=== PATIENT | female | born 1990 | race Caucasian/White ===

== ENCOUNTER 2020-04-23 10:26 | Emergency (ER) | payer SELFPAY ==
[2020-04-23] MEDS ORDERED: ONDANSETRON 4 MG/2 ML VIAL ONE (11:17)
[2020-04-23] MEDS ORDERED: NA CHLORIDE 0.9% 1,000 ML ONE (11:17)
[2020-04-23] MEDS ORDERED: KETOROLAC 30 MG/ML INJ ONE (11:17)
[2020-04-23 11:23] LABS: Absolute Lymphocytes (CBC) 2.1 K/uL (0.7-4.9); Hematocrit 42.1 % (36.0-45.0); Lymphocytes % 34.6 % (15.3-44.8); MPV 9.5 fL (7.6-11.3); RBC Red Blood Cell Count 4.75 M/uL (3.86-4.86)
[2020-04-23 11:27] LABS: Urine Blood NEGATIVE (NEG); Urine Glucose NEGATIVE (NEG); Urine Protein NEGATIVE (NEG); Urine Specific Gravity 1.025 (1.005-1.030)
[2020-04-23 11:42] LABS: ALT/SGPT 69 U/L (12-78); AST/SGOT 36 U/L (15-37); Albumin 3.7 g/dL (3.4-5.0); Alkaline Phosphatase 72 U/L (45-117); BUN Blood Urea Nitrogen 13 mg/dL (7-18); Bicarbonate 25 mmol/L (21-32); Bilirubin Direct < 0.1 mg/dL (0-0.2); Bilirubin Total 0.3 mg/dL (0.2-1.0); Glucose Level 81 mg/dL (74-106); Lipase 103 U/L (73-393); Protein, Total 7.4 g/dL (6.4-8.2); Sodium Level 141 mmol/L (136-145)
--- NOTE | 2020-04-23 13:19 | RAD REPORT ---
EXAM DESCRIPTION: CT - Abdomen Pelvis W Contrast - 04/23/2020 1:00 pm CLINICAL HISTORY: RLQ abdomen pain COMPARISON: No comparisons TECHNIQUE: Biphasic, helical CT imaging of the abdomen and pelvis was performed following 100 ml non -ionic IV contrast. Oral contrast was given. All CT scans are performed using dose optimization technique as appropriate and may include automated exposure control or mA/KV adjustment according to patient size. FINDINGS: No suspicious findings in the lung bases. The liver, spleen, and pancreas show no suspicious findings. Cholecystectomy clips are present. No bi liary tree dilatation. Renal parenchymal enhancement is somewhat heterogeneous for each kidney. The heterogeneity is symmetr ic. No specific finding for pyelonephritis on CT imaging. No hydronephrosis or obstructing calculus. No solid mass lesions seen. No bladder abnormalities. No adrenal abnormalities. Uterus and ovaries show no suspicious findings. No dilated bowel loops or bowel wall thickening. No findings for appendicitis. No free air, free flui d or inflammatory stranding. No mass or bulky lymphadenopathy. Patient has a small supraumbilical ve ntral hernia 2.5 cm in diameter with a 1.5 centimeter neck. Hernia contains only fat. No suspicious bony findings. IMPRESSION: No appendicitis or other acute finding identifiable. Small midline supraumbilical ventral hernia containing only fat.
--- NOTE | 2020-04-23 13:55 | ER ---
Nurse's Notes [facility] Name: Urvashi Palacios Age: 29 yrs Sex: Female : 1990 Arrival Date: 04/23/2020 Time: 10:27 Bed 18 Private MD: Diagnosis: Lower abdominal pain, unspecified Presentation: 04/23 10:37 Chief complaint: Patient states: RLQ pain that started yesterday, also reports N/V/D, em denies fever, cough congestion, pt is currently at [facility]. Coronavirus screen: Proceed with normal triage. Patient denies a cough. Patient denies shortness of breath or difficulty breathing. Patient denies measured and/or subjective temperature greater than 100.4F prior to today's visit. Patient denies travel on a cruise ship or to a country the [facility] currently lists as an affected area. Patient denies contact with known and/or suspected case of COVID-19. Ebola Screen: Patient negative for fever greater than or equal to 101.5 degrees Fahrenheit, and additional compatible Ebola Virus Disease symptoms Patient denies exposure to infectious person. Patient denies travel to an Ebola-affected area in the 21 days before illness onset. No symptoms or risks identified at this time. Initial Sepsis Screen: Does the patient meet any 2 criteria? No. Patient's initial sepsis screen is negative. Does the patient have a suspected source of infection? No. Patient's initial sepsis screen is negative. Risk Assessment: Do you want to hurt yourself or someone else? Patient reports no desire to harm self or others. Onset of symptoms was April 22, 2020. 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 - Social history:: Smoking status: Patient denies any tobacco usage or history of. Screenin:42 Abuse screen: Denies threats or abuse. Denies injuries from another. Nutritional ca1 screening: No deficits noted. Tuberculosis screening: No symptoms or risk factors identified. Fall Risk IV access (20 points). Assessment: 10:55 General: Appears in no apparent distress. comfortable, Behavior is calm, cooperative, ca1 appropriate for age. Pain: Complains of pain in right lower quadrant Pain radiates to left lower quadrant Pain currently is 6 out of 10 on a pain scale. Pain began 1 day ago. Is intermittent. Neuro: Level of Consciousness is awake, alert, obeys commands, Oriented to person, place, time, situation, Appropriate for age. Cardiovascular: Heart tones S1 S2 present Capillary refill < 3 seconds Patient's skin is warm and dry. Respiratory: Airway is patent Respiratory effort is even, unlabored, Respiratory pattern is regular, symmetrical, Breath sounds are clear bilaterally. GI: Abdomen is round non-distended, Bowel sounds present X 4 quads. Abd is soft X 4 quads Abdomen is tender to palpation in right upper quadrant and right lower quadrant Reports nausea, vomiting, since yesterday. : No signs and/or symptoms were reported regarding the genitourinary system. EENT: No signs and/or symptoms were reported regarding the EENT system. Derm: Skin is intact, is healthy with good turgor, Skin is pink, warm \\T\\ dry. Musculoskeletal: Circulation, motion, and sensation intact. Capillary refill is > 3 seconds. 11:26 Reassessment: PO contrast completed. ca1 12:09 Reassessment: Patient appears in no apparent distress at this time. Patient and/or ca1 family updated on plan of care and expected duration. Pain level reassessed. Patient is alert, oriented x 3, equal unlabored respirations, skin warm/dry/pink. 12:47 Reassessment: Patient appears in no apparent distress at this time. Patient and/or ca1 family updated on plan of care and expected duration. Pain level reassessed. Patient is alert, oriented x 3, equal unlabored respirations, skin warm/dry/pink. 13:43 Reassessment: Patient appears in no apparent distress at this time. Patient and/or ca1 family updated on plan of care and expected duration. Pain level reassessed. Patient is alert, oriented x 3, equal unlabored respirations, skin warm/dry/pink. 14:17 Reassessment: Patient appears in no apparent distress at this time. Patient is alert, ca1 oriented x 3, equal unlabored respirations, skin warm/dry/pink. Vital Signs: 10:37 BP 129 / 76; Pulse 86; Resp 18; Temp 97.8(TE); Pulse Ox 100% on R/A; Weight 104.33 kg; em Height 5 ft. 7 in. (170.18 cm); Pain 6/10; 11:26 BP 123 / 79; Pulse 72; Resp 16 S; Pulse Ox 100% on R/A; ca1 12:30 BP 113 / 77; Pulse 70; Resp 15 S; Pulse Ox 100% on R/A; ca1 13:45 BP 119 / 76; Pulse 73; Resp 15 S; Pulse Ox 100% on R/A; ca1 10:37 Body Mass Index 36.02 (104.33 kg, 170.18 cm) em ED Course: 10:27 Patient arrived in ED. as 10:39 Triage completed. em 10:40 Arm band placed on. em 10:41 Antoinette Lewis, RN is Primary Nurse. ca1 10:42 Patient has correct armband on for positive identification. Bed in low position. Call ca1 light in reach. Side rails up X 1. Placed in gown. Pulse ox on. NIBP on. Warm blanket given. 10:43 Dima Plasencia PA is PHCP. cp 10:43 Maximiliano Salmon MD is Attending Physician. cp 10:55 No provider procedures requiring assistance completed. Missed attempt(s): 20 gauge in ca1 right antecubital area. Bleeding controlled, band aid applied, catheter tip intact. 11:05 Initial lab(s) drawn, by wi, sent to lab. Inserted saline lock: 20 gauge in left ca1 antecubital area, using aseptic technique. Blood collected. 13:00 CT Abd/Pelvis - PO and IV Contrast In Process Unspecified. EDMS 14:18 IV discontinued, intact, bleeding controlled, No redness/swelling at site. Pressure ca1 dressing applied. Administered Medications: 11:07 Drug: NS 0.9% 1000 ml Route: IV; Rate: 1 bolus; Site: left antecubital; ca1 12:00 Follow up: Response: No adverse reaction; IV Status: Completed infusion ca1 11:09 Drug: Zofran (Ondansetron) 4 mg Route: IVP; Site: left antecubital; ca1 12:00 Follow up: Response: No adverse reaction; Nausea is increased ca1 11:11 Drug: Ketorolac 15 mg Route: IVP; Site: left antecubital; ca1 12:00 Follow up: Response: No adverse reaction; Pain is decreased ca1 Outcome: 13:54 Discharge ordered by MD. browne 14:18 Discharged to Rehab Facility ca1 14:18 Condition: stable 14:18 Discharge instructions given to patient, Instructed on discharge instructions, follow up and referral plans. medication usage, Demonstrated understanding of instructions, follow-up care, medications, Prescriptions given X 2. 14:19 Patient left the ED. ca1 Signatures: Dispatcher [employer] Miguel Todd, RN RN Kailey Rodríguez Corey, PA PA cp Acob, Cheryl, RN RN ca1
--- NOTE | 2020-04-23 13:55 | EDPHYS ---
Physician Documentation [facility] Name: Urvashi Palacios Age: 29 yrs Sex: Female : 1990 Arrival Date: 04/23/2020 Time: 10:27 Bed 18 Private MD: ED Physician Maximiliano Salmon HPI: 04/23 11:03 This 29 yrs old Female presents to ER via Ambulatory with complaints of cp Abdominal Pain. 11:03 The patient presents with abdominal pain right lower quadrant. Onset: The cp symptoms/episode began/occurred yesterday. The symptoms do not radiate. Associated signs and symptoms: Pertinent positives: nausea and vomiting, diarrhea, Pertinent negatives: dysuria, fever. 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 - Social history:: Smoking status: Patient denies any tobacco usage or history of. ROS: 11:10 Constitutional: Negative for body aches, chills, fever, poor PO intake. cp 11:10 Eyes: Negative for injury, pain, redness, and discharge. cp 11:10 ENT: Negative for ear pain, sore throat, difficulty swallowing, difficulty handling secretions. 11:10 Respiratory: Negative for cough, shortness of breath, wheezing. 11:10 Abdomen/GI: Positive for abdominal pain, nausea, vomiting, and diarrhea, Negative for cp constipation, anorexia. 11:10 Back: Negative for radiated pain. 11:10 : Negative for urinary symptoms, pelvic pain, flank pain, vaginal bleeding, vaginal discharge. 11:10 All other systems are negative. Exam: 11:15 Constitutional: The patient appears in no acute distress, alert, awake, non-toxic, well cp developed, well nourished. 11:15 Head/Face: Normocephalic, atraumatic. cp 11:15 Eyes: Periorbital structures: appear normal, Conjunctiva: normal, no exudate, no injection, Sclera: no appreciated abnormality, Lids and lashes: appear normal, bilaterally. 11:15 ENT: External ear(s): are unremarkable, Nose: is normal, Posterior pharynx: is normal, airway is patent. 11:15 Chest/axilla: Inspection: normal, Palpation: is normal, no crepitus, no tenderness. 11:15 Cardiovascular: Rate: normal, Rhythm: regular. 11:15 Respiratory: the patient does not display signs of respiratory distress, Respirations: normal, no use of accessory muscles, no retractions, labored breathing, is not present, Breath sounds: are clear throughout, no decreased breath sounds, no stridor, no wheezing. 11:15 Abdomen/GI: Inspection: abdomen appears normal, Bowel sounds: active, all quadrants, Palpation: soft, in all quadrants, moderate abdominal tenderness, in the right lower quadrant, rebound tenderness, is not appreciated, voluntary guarding, is elicited in the right lower quadrant. 11:15 Back: pain, is absent, ROM is normal. cp Vital Signs: 10:37 BP 129 / 76; Pulse 86; Resp 18; Temp 97.8(TE); Pulse Ox 100% on R/A; Weight 104.33 kg; em Height 5 ft. 7 in. (170.18 cm); Pain 6/10; 11:26 BP 123 / 79; Pulse 72; Resp 16 S; Pulse Ox 100% on R/A; ca1 12:30 BP 113 / 77; Pulse 70; Resp 15 S; Pulse Ox 100% on R/A; ca1 13:45 BP 119 / 76; Pulse 73; Resp 15 S; Pulse Ox 100% on R/A; ca1 10:37 Body Mass Index 36.02 (104.33 kg, 170.18 cm) em MDM: 10:53 Patient medically screened. cp 11:00 Differential diagnosis: appendicitis, Ectopic , non-specific abd pain, Ovarian cp Torsion, Pelvic Inflammatory Disease, Pyelonephritis, Tubal Ovarian Abcess, Ureterolithiasis, urinary tract infection. 13:53 Data reviewed: vital signs, nurses notes, lab test result(s), radiologic studies, CT cp scan. 13:53 Counseling: I had a detailed discussion with the patient and/or guardian regarding: the cp historical points, exam findings, and any diagnostic results supporting the discharge/admit diagnosis, lab results, radiology results, to return to the emergency department if symptoms worsen or persist or if there are any questions or concerns that arise at home. Response to treatment: the patient's symptoms have markedly improved after treatment. Special discussion: Based on the patient's Hx, exam, and Dx evaluation, there is no indication for emergent surgery or inpatient Tx. It is understood by the patient/guardian that if the Sx's persist or worsen they need to return immediately for re-evaluation. 13:53 ED course: VSS. Pain improved with meds. Will discharge to home for continued cp monitoring. 04/23 10:53 Order name: Urine Dipstick--Ancillary (enter results); Complete Time: 11:46 em1 04/23 10:53 Order name: Urine --Ancillary (enter results); Complete Time: 11:46 em1 04/23 11:00 Order name: Basic Metabolic Panel; Complete Time: 11:46 cp 04/23 11:47 Interpretation: Normal except: CL 110; GFR 80. cp 04/23 11:00 Order name: CBC with Diff; Complete Time: 11:46 cp 04/23 11:47 Interpretation: Reviewed. cp 04/23 11:00 Order name: Hepatic Function; Complete Time: 11:46 cp 04/23 11:46 Interpretation: Normal except: GLOB 3.7; A/G 1.0. cp 04/23 10:44 Order name: Urine Dipstick-Ancillary (obtain specimen); Complete Time: 10:52 cp 04/23 10:44 Order name: Urine Test (obtain specimen); Complete Time: 10:52 cp 04/23 11:00 Order name: Lipase; Complete Time: 11:46 cp 04/23 11:00 Order name: IV Saline Lock; Complete Time: 11:05 cp 04/23 11:00 Order name: CT Abd/Pelvis - PO and IV Contrast; Complete Time: 13:21 cp 04/23 13:22 Interpretation: Report reviewed. cp 04/23 11:00 Order name: Labs collected and sent; Complete Time: 11:05 cp Administered Medications: 11:07 Drug: NS 0.9% 1000 ml Route: IV; Rate: 1 bolus; Site: left antecubital; ca1 12:00 Follow up: Response: No adverse reaction; IV Status: Completed infusion ca1 11:09 Drug: Zofran (Ondansetron) 4 mg Route: IVP; Site: left antecubital; ca1 12:00 Follow up: Response: No adverse reaction; Nausea is increased ca1 11:11 Drug: Ketorolac 15 mg Route: IVP; Site: left antecubital; ca1 12:00 Follow up: Response: No adverse reaction; Pain is decreased ca1 Disposition: 15:55 Co-signature as Attending Physician, Maximiliano Salmon MD I agree with the assessment and kdr plan of care. Disposition: 04/23/20 13:54 Discharged to Home. Impression: Lower abdominal pain, unspecified. - Condition is Stable. - Discharge Instructions: Abdominal Pain, Adult. - Prescriptions for Ibuprofen 800 mg Oral Tablet - take 1 tablet by ORAL route every 8 hours As needed take with food; 30 tablet. Zofran 4 mg Oral Tablet - take 1 tablet by ORAL route every 12 hours As needed; 20 tablet. - Medication Reconciliation Form, Thank You Letter, Antibiotic Education, Prescription Opioid Use form. - Follow up: Private Physician; When: 1 - 2 days; Reason: Worsening of condition. - Problem is new. - Symptoms have improved. Signatures: Dispatcher [employer] EDSC Maximiliano Salmon MD MD [facility] Miguel Brooke, RN RN em Dima Plasencia PA PA cp Joshua, Antoinette, RN RN ca1 Corrections: (The following items were deleted from the chart) 14:19 13:54 04/23/2020 13:54 Discharged to Home. Impression: Lower abdominal pain, ca1 unspecified. Condition is Stable. Forms are Medication Reconciliation Form, Thank You Letter, Antibiotic Education, Prescription Opioid Use. Follow up: Private Physician; When: 1 - 2 days; Reason: Worsening of condition. Problem is new. Symptoms have improved. cp
[2020-04-23 14:35] VITALS: TEMP 97.8; O2SAT 100
[2020-04-23 14:39] VITALS: BP 119/76
== END 2020-04-23 14:19 | disposition home or self-care (01) ==
LOC: ER 10:26
DX: R10.31 Right lower quadrant pain (principal); R11.2 Nausea with vomiting, unspecified
CPT/HCPCS: 36415; 74177; 80048; 80076; 81003; 81025; 83690; 85025; 96361; 96374; 96375; 99284; J2405; J7030; Q9967

== ENCOUNTER 2020-09-23 13:38 | Emergency (ER) | payer SELFPAY ==
--- OUTSIDE RECORDS SUMMARY | 2020-09-23 13:39 | XMS REPORT | Clinical Summary ---
:1990 Author Organization [facility] Address [address] [place] [address] Care Team Providers Name Role Phone Asked, No Pcp Primary Care Provider Unavailable Allergies Active Allergy Reactions Severity Noted Date Comments Naproxen Itching 11/24/2017 Medications Medication Sig Dispensed Refills Start Date End Date Status Take 1 tablet by 0 Act handy vit,[id number] mouth daily. 29 mg iron- 1 mg tablet per tablet Active Problems Problem Noted Date 11/24/2017 Intrauterine growth restriction (IUGR) affecting care of mother, third 11/24/2017 trimester, single gestation (normal spontaneous vaginal delivery) 11/24/2017 Immunizations Name Administration Dates Next Due Tdap 11/26/2017 Surgical History Surgery Date Site/Laterality Comments CHOLECYSTECTOMY 10/24/2014 - 10/23/2015 gall bladd er removed Medical History Medical History Date Comments Intrauterine growth restriction (IUGR) affecting care of mot her, 11/24/2017 third trimester, single gestation (normal spontaneous vaginal delivery) 11/24/2017 Family History Medical History Relation Name Comments Breast cancer Maternal Grandmother Colon cancer Paternal Grandfather Relation Name Status Comments Maternal Grandmother Paternal Grandfather Social History Tobacco Use Types Packs/Day Years Used Date Former Smoker Cigars 0.5 14 Smokeless Tobacco: Former User Tobacco Cessation: Counseling Given: Yes Alcohol Use Drinks/Week oz/Week Comments No Sex Assigned at Date Recorded Not on file Obstetrics History Grav Para Term Pre Abrt (TAB) (SAB) (Ect) Mult Lvng Comments 1 1 1 0 1 Date Outcome GA Total Labor/2nd/3rd Weight Sex Delivery Anes PTL Joyce A 1 A5 Name Clin Labor 11/24 Term 39w 8h 23m 7h 45m/0h 6 lb M Vag-Spont Epidu N Kaur 8 9 PALACIOS, Ander 1d 36m/0h 02m 6.3 oz ral ng S MASHA n, A BOY Irina hess MD Complications: None [facility] Last Filed Vital Signs Not on file Plan of Treatment Not on file Results Not on fileafter 09/23/2019 Insurance Payer Benefit Plan / Subscriber ID Effective Dates Phone Addre ss Type Group XP [employer] [facility] [id number] 2017-Present HMO CHOICE [facility] Advance Directives For more information, please contact: [phone] Type Date Recorded Patient Human Resources Services Specialist Explanati on Advance Directives, Living Will 11/24/2017 4:52 AM and Medical Power of Architecture Drafter Code Status Date Activated Date Inactivated Comments Full Code 11/25/2017 8:48 AM 11/26/2017 2:57 PM Code Status decision reached by: Patient Full Code 11/24/2017 5:02 AM 11/24/2017 7:35 PM Code Status decision reached by: Patient
--- OUTSIDE RECORDS SUMMARY | 2020-09-23 13:40 | XMS REPORT | Continuity of Care Document ---
:1990 Author Organization [facility] t Address [address] [place] [address] Care Team Providers Name Role Phone Asked, Pcp Primary Care Physician Unavailable DR ROBY Attending Clinician Unavailable DR Cat SIMPSON Attending Clinician Unavailable DR LISA Attending Clinician Unavailable DR Nataly MCGARRY Attending Clinician Unavailable DR Margie GONZALEZ Attending Clinician Unavailable Desmond PINA Attending Clinician Unavailable DR DIVYA Attending Clinician Unavailable DR ROBY Admitting Clinician Unavailable DR Cat SIMPSON Admitting Clinician Unavailable DR LISA Admitting Clinician Unavailable DR Nataly MCGARRY Admitting Clinician Unavailable DR Margie GONZALEZ Admitting Clinician Unavailable Desmond PINA Admitting Clinician Unavailable DR DIVYA Admitting Clinician Unavailable Problems Condition Condition Condition Status Onset Resolution Last Treating Co mments Source Name Details Category Date Date Treatment Clinician Date Disease Active Nikki ston 11-24 Methodi 00:00: st 00 Intrauteri Intrauteri Disease Active Desmond donahue ne growth ne growth 11-24 Meth best restrictio restrictio 00:00: st n (IUGR) n (IUGR) 00 affecting affecting care of care of mother, mother, third third trimester, trimester, single single gestation gestation Disease Active [facility] (normal (normal 11-24 Methodi spontaneou spontaneou 00:00: st s vaginal s vaginal 00 delivery) delivery) Allergies, Adverse Reactions, Alerts Allergy Allergy Status Severity Reaction(s) Onset Inactive Treating Comm ents Source Name Type Date Date Clinician Naproxen Propensi Active Itching [place] on ty to 11-24 Methodi adverse 00:00: st reaction 00 s to drug Family History Family Member Diagnosis Comments Start Date Stop Date Source Maternal grandmother Breast cancer Desmond Maurice Paternal grandfather Colon cancer [place] Den[facility]ational Social History Social Habit Start Date Stop Date Quantity Comments Source History of tobacco Cigar Smoker [place] Denominational use Sex Assigned At [facility] Cigarettes smoked 2017-11-25 2017-11-25 [facility] current (pack per 00:00:00 00:00:00 day) - Reported Cigarette 2017-11-25 2017-11-25 [facility] Method ist pack-years 00:00:00 00:00:00 Tobacco use and 2017-11-25 2017-11-25 Former user [facility] exposure 00:00:00 00:00:00 Alcohol intake 2017-11-25 2017-11-25 Current [facility] 00:00:00 00:00:00 non-drinker of alcohol (finding) Smoking Status Start Date Stop Date Source Former smoker 2017-11-25 00:00:00 2017-11-25 00:00:00 [facility] Medications Ordered Filled Start Stop Current Ordering Indication Dosage Frequency Signature Comments Components Source Medication Medication Date Date Medication? Clinician (SIG) Name Name Yes 1{tbl} QD Take 1 [place] on vit,calc76- 2-03 tablet by [facility] iron-folic 10:56: mouth st 29 mg iron- 52 daily. 1 mg tablet per tablet Immunizations Ordered Immunization Filled Immunization Date Status Commen ts Source Name Name Tdap 2017-11-26 [facility] 00:00:00 Denominational Procedures This patient has no known procedures. Encounters Start End Encounter Admission Attending Care Care Encounter Source Date/Time Date/Time Type Type Clinicians Facility Department ID 2018-02-01 Inpatient [place] [id number] [place] 09:00:00 [facility] 2019-07-12 2019-07-12 Emergency E TATIANA [facility] [id number] [place] 19:21:00 20:50:00 [facility] [place] 2019-03-27 2019-03-27 Emergency E LISA [facility] [id number] [place] 17:19:00 19:12:00 [facility] [place] 2018-02-01 2018-03-27 Outpatient [place]ica MCGARRY [facility] PT [id number] [place] 09:02:00 23:59:00 [facility]IN [facility] [place] 2018-01-23 2018-01-23 Outpatient [place]ica MCGARRY [facility] RAD [id number] [place] 13:12:00 23:59:00 [facility] 2017-12-23 2017-12-23 Outpatient [place] MCGARRY, [facility] RAD [id number] [place] 09:46:00 [facility]:59:[facility] 2017-12-19 2017-12-19 Emergency E LISA, [facility] [id number] [place] 10:29:00 11:40:00 [facility] 2017-11-17 2017-11-17 Outpatient [place]ica CA, [facility] OB [id number] [place] 15:37:00 20:19:00 [facility] 2015-03-06 2015-03-06 Emergency E DIVYA, [facility] [id number] [place] 18:11:00 [facility] Results Test Description Test Time Test Comments Results Result [facility] e Comments XR FOOT LEFT 2019-06-24 LOCATION: [id number]: COMPLETE 3 VIEWS 9 28-year-old female who 20:43:23 presents with injury to her left foot.COMMENT: Frontal, oblique, and lateral radiographs of the patient's left foot wereobtained. The skeleton is intact, and normally mineralized. The joint spaces arewell-maintained. The soft tissues are unremarkable.IMPRESSION:Unr emarkable radiographic examination of the left foot. XR ANKLE LEFT 2019-06-24 LOCATION: [id number]: COMPLETE 3 VIEWS 9 28-year-old female who 20:37:00 presents with an injury to her left ankle.COMMENT: Frontal, oblique, and lateral radiographs of the patient's left ankle wereobtained.The skeleton is intact, and normally mineralized. The mortise joint andsubtalar joints are preserved. The surrounding soft tissues are unremarkable.IMPRESSION:Unr emarkable radiographic examination of the left ankle. XR SHOULDER LOCATION: [id number]: RIGHT 3 VIEWS 4 28-year-old female who 18:36:50 presents with pain in her right shoulder.COMMENT: Frontal radiographs of the patient's right shoulder were obtained with thehumerus internally and externally rotated. A scapular Y-view was includedThe skeleton is intact, and normally mineralized. The glenohumeral andacromioclavicular joints are with normal limits. The soft tissues areunremarkable.IMPRESSION: Unremarkable radiographic examination of the right shoulder. XR CHEST 1 VIEW LOCATION: [id number]: PORTABLE 4 28-year-old female who 18:36:12 presents with right shoulder painCOMMENT: A frontal chest radiograph was obtained at the bedside at 6:07 p.m. The lungs are clear and well-aerated. The cardiac silhouette, sapphire, andmediastinum are within normal limits. The skeleton is intact, and thesurrounding soft tissues are unremarkable. IMPRESSION:Unremarkable portable examination of the chest. MRI SPINE LUMBAR MRI Lumbar Spine without W/O CONTRAST*WW* 2 contrastLocation code: 14:47:15 [id number]: M54.5: LOW BACK PAINCOMPARISON: None.Technique: Multiplanar multisequence MR imaging of the lumbar spine wasperformed without contrast. Findings: Lumbar vertebral height and marrow signal are preserved throughout. 5lumbar segments are assumed. The conus terminates normally at L1/L2. Theparaspinal soft tissues are unremarkable. Multilevel spondylitic changes arenoted as follows:L1-L2: NormalL2-L3: NormalL3-L4: NormalL4-L5: Mild annular bulging and minimal facet arthropathy without significantcentral canal or foraminal stenosis.L5-S1: Mild annular bulging and minimal facet arthropathy without significantcentral canal or foraminal stenosis.IMPRESSION: Minimal lower lumbar spondylosis and facet arthropathy without significantcentral canal or foraminal stenosis. Otherwise, no acute abnormality. XR SPINE LUMBAR LUMBAR SPINE 5 COMPLETE*WW* 2 VIEWS:Location: D3Rplgggd: 10:28:56 pain in spine.Comparison: None.FINDINGS:AP, bilateral oblique, lateral and spot view of the lumbosacral junction wasperformed.There are surgical clips from prior cholecystectomy.Alignment is satisfactory. There is no fracture or subluxation. Vertebral bodyheights are maintained. Mild spondylosis is present throughout the lumbarspine. Facet arthropathy is noted in the lower lumbar spine. Paravertebral softtissues are normal. IMPRESSION: 1. Mild spondylosis. No acute osseous abnormality. U/S BIO-PHYSICAL 2017-10-25 Location of dictation: PROFILE*WW* 5 [id number] PROFILE: 18:51:14 CLINICAL INDICATION: [id number]: growth restrictionTECHNIQUE: Dynamic scanning of the gravid uterus was performed.FINDINGS: There is a single living in cephalic presentation. Cardiacactivity was documented at 137 beats per minute and regular. The cervix isclosed measuring 3.5 cm. The placenta is fundal with no evidence for previa.Grade 2 changes are noted. Amniotic fluid index measures 12 cm with the singledeepest pocket measuring 3.8 cm.Biophysical profile was performed: breathing movements: 2.Gross body movement: 2. tone: 2.Qualitative amniotic fluid volume: 2.Total score is 8.IMPRESSION:1. Single viable in cephalic presentation.2. Biophysical profile score excluding nonstress test of 8 of 8. U/S 2017-06-25 OBSTETRIC ULTRASOUND >14 WEEKS 6 Location code: [id number] 16:03:35 HISTORY: Vomiting, diarrheaGA by first US: 20 weeks and 2 daysEDD by 1st ultrasound: 12/04/17GA by today's US: 20 weeks and 0 daysFindings:There is a single intrauterine in cephalic presentation. Estimatedfetal heart rate is 154 beats per minute. Amniotic fluid index is 12.5 cm. Theplacenta is posterior with grade 1 changes. There is no evidence of previa orabruption. The cervix is closed and measures 2.6 cm. The maternal adnexa areunremarkable. Approximate sonographic age is 20 weeks and 0 days based upon the following:BPD 4.7 cm 20 weeks 2 daysHC 17.4 cm 20 weeks 0 daysAC 15.3 cm 20 weeks 3 daysFL 3.2 cm 20 weeks 1 day ratios are within normal limits. weight estimateWeight: 343 gramsAnatomic survey reveals no abnormality of the intracranial contents,four-chamber heart, bilateral kidneys, urinary bladder, 3 vessel cord, cordinsertion, spine, and extremities. The stomach is nonvisualized.IMPRESSION: 1. Single intrauterine in cephalic presentation with an approximatesonographic age of 20 weeks and 0 days. 2. No abnormality identified. The stomach is nonvisualized.Follow-up exam and 4-6 weeks is recommended. BETA HCG QUANTITATIVE SERUM 2017-07-19 15:01:00 Test Item Value Reference Range Interpretation Comme [facility] QUANT (test code = H73) 7489.00 mIU/mL BHCGQ (test code = BHCQ) QUANTITATIVE BHCG RESULT INTERPRETAT ION APPROXIMATE APPROXIMATE GESTATIONAL AGE HCG RANGE (WEEKS) (mIU/mL) 0.2 - 1 0 - 50 1 - 2 50 - 500 2 - 3 100 - 5,000 3 - 4 500 - 10,000 4 - 5 1,000 - 50,000 5 - 6 10,000 - 100,000 6 - 8 15,000 - 200,000 8 - 12 10,000 - 100,000 XR CHEST 2 [id number] 14:48:00PA and lateral chest, 2 views.Location code: [id number] HISTORY: Cough, shortness of breathCOMPARISON: 10/24/2014COMMENTS: The lungs are clear and well inflated. The costophrenic angles aresharp. The ca rdiomediastinal silhouette is unremarkable. The bones are intact.IMPRESSION: No acute abnormalityAMYLASE AND [id number] 14:38:00 Test Item Value Reference Range Interpretation Comments AMYLASE (test code = 10A) 36 U/L 28-100 LIPASE (test code = 60A) 76 IU/L 73-393 COMPREHENSIVE METABOLIC [id number] 14:38:00 Test Item Value Reference Range Interpretation Comments GLUCOSE (test code = 06D) 79 mg/dL 75-100 SODIUM (test code = 01A) 137 mmol/L 136-145 POTASSIUM (test code = 01B) 3.5 mmol/L 3.6-5.1 L CHLORIDE (test code = 04A) 106 mmol/L 98-107 CO2 (test code = 02A) 21 mmol/L 22-32 L ANION GAP (test code = ANG) 13.5 mmol/L BUN (test code = 05D) 9 mg/dL 7-18 CREATININE (test code = 03E) 0.7 mg/dL 0.4-1.1 BUN/CREA (test code = BCR) 14 12-20 CALCIUM (test code = 09D) 8.8 mg/dL 8.3-9.5 BILI TOTAL (test code = 11A) 0.7 mg/dL 0.2-1.0 PROTEIN (test code = 07D) 7.7 g/dL 6.4-8.2 ALBUMIN (test code = 08D) 3.3 g/dL 3.5-4.8 L GLOBULIN (test code = GLB) 4.4 g/dL 1.5-3.8 H ALB/GLOB (test code = AGRR) 0.8 1.0-2.6 L ALK PHOS (test code = 35A) 72 IU/L 42-121 AST (test code = 30A) 15 IU/L <=42 ALT (test code = 31A) 22 IU/L <=78 URINALYSIS WITH [id number] 14:24:00 Test Item Value Reference Range Interpretation Comments COLOR (test code = COLU) DK YELLOW YELLOW A CLARITY (test code = CLA) CLOUDY CLEAR A GLUCOSE UR (test code = UA GLUCOSE) NEGATIVE NEGATIVE BILI UR (test code = BILE) 1+ NEGATIVE A KETONES UR (test code = HUNTER) 3+ NEGATIVE A SP GRAVITY (test code = SPGR) 1.031 1.005-1.030 H PH UR (test code = PH) 6.5 4.5-8.0 PROTEIN UR (test code = PU) 2+ NEGATIVE A UROBIL UR (test code = UROQ) 0.2 EU/dL 0.2-1.0 NITRITE UR (test code = NITRITE) NEGATIVE NEGATIVE BLOOD UR (test code = UA BLOOD) NEGATIVE NEGATIVE LEUK ES UR (test code = LEUK) TRACE NEGATIVE A WBC UR (test code = UWBC) 2 /HPF 0-5 RBC UR (test code = URBC) 0 /HPF 0-2 EPITH UR (test code = UEPC) MANY /LPF FEW A BACTERIA UR (test code = UBACT) FEW /HPF NONE A CBC (INCLUDES AUTOMATED DIFFERENTIAL)2017-07-19 14:19:00 Test Item Value Reference Range Interpretation Comments WBC (test code = WBC) 11.8 10\S\3/uL 4.5-11.0 H RBC (test code = RBC) 4.56 10\S\6/uL 4.30-5.70 HGB (test code = HBG) 13.6 g/dL 12.0-15.5 HCT (test code = HCT) 39.3 % 35.0-44.0 MCV (test code = MCV) 86.2 fL 81.0-99.0 MCH (test code = MCH) 29.8 pg 27.0-31.0 MCHC (test code = MCHC) 34.6 g/dL 32.0-36.0 RDW (test code = RDW) 13.2 % 11.5-14.5 PLT (test code = PLT) 212 10\S\3/uL 130-400 MPV (test code = MPV) 11.5 fL 9.4-12.4 NEUTROP # (test code = NE#) 8.9 10\S\3/uL 1.6-8.0 H LYMPH # (test code = LY#) 2.1 10\S\3/uL 1.1-3.5 MONOCYTE # (test code = MO#) 0.7 10\S\3/uL 0.0-1.1 EOSINOPH # (test code = EO#) 0.0 10\S\3/uL 0.0-0.7 BASOPHIL # (test code = BA#) 0.1 10\S\3/uL 0.0-0.3 IG # (test code = IG#) 0.09 10\S\3/uL 0.00-0.06 H NRBC # (test code = NRBC#) 0.00 10\S\3/uL 0.00-0.01 NEUTROPH % (test code = NE%) 75.0 % 35.0-73.0 H LYMPH % (test code = LY%) 17.8 % 20.0-55.0 L MONO % (test code = MO%) 5.7 % 2.5-10.0 EOSINOPH % (test code = EO%) 0.3 % 0.0-5.0 BASOPHIL % (test code = BA%) 0.4 % 0.0-2.0 IG % (test code = IG%) 0.8 % 0.0-0.8 NRBC% (test code = NRBC%) 0.0 % 0.0-0.2 MANDIFF (test code = MDIFF) NO NO RBC MORPH (test code = RBCMOR) NORMAL Arterial Blood [id number] 14:11:00 Test Item Value Reference Range Interpretation Comments pH (test code = PHRT) 7.396 7.350-7.450 pCO2 (test code = 34.8 mmHg 35.0-45.0 L PCO2RT) pO2 (test code = 234.0 mmHg 80.0-110.0 H PO2RT) HCO3? (test code = 20.9 mmol/L 22.0-26.0 L HCO3) JEAN-CLAUDE (test code = JEAN-CLAUDE) -2.8 mmol/L -3.0-3.0 tHb (test code = 13.5 g/dL 12.0-15.5 THBRT) sO2 (test code = 99.6 % 92.0-100.0 SO2RT) FO2Hb (test code = 96.2 % 94.0-100.0 [id number]) FCOHb (test code = 2.6 % 0.0-3.0 FCOHBRT) FMetHb (test code = 0.8 % 0.2-0.6 H FMETHBRT) ABGTEMP (test code = * Temp Corrected Values* ABGTEMP) ABGTEMP (test code = 37.0 ?C ABGTEMP.) pH (T) (test code = 7.396 7.350-7.450 PHTEMP) pCO2 (T) (test code = 34.8 mmHg 35.0-45.0 L [id number]) pO2 (T) (test code = 234.0 mmHg 80.0-110.0 H [id number]) Device (test code = NON RE-GONZALO MASK DEVICE) FI02 (test code = 100.0 % FI02) Liter_flow (test code = LF) VENPAR (test code = * Ventilator Parameters VENPAR) * SIMV (test code = SIMV) A/C (test code = A/C) CPAP (test code = CPAP) PEEP (test code = PEEP) PS (test code = PS) PIP (test code = PIP) I_Time (test code = ITIME) Vt (test code = VT) BIPAP INSP (test code = BIPAPINP) BIPAP EXP (test code = BIPAPEXP) Yared test (test code Positive = ATEST) SAMPLE SITE (test Left Radial Artery code = SSITE) COMMENT (test code = CO) U/S < 14 WEEKS*WW*2017-05-26 14:06:09PELVIC AND TRANSVAGINAL ULTRASOUNDLocation code: [id number] HISTORY: , carbon monoxide exposu reTECHNIQUE: Multiple high resolution images were obtained through the pelvis using amultifrequency curved transducer followed by a transvaginal probe.FINDINGS: The uterus measures 12.2 x 8.8 x 8.0 cm.There is a single intrauterinepregnancy. [place]-rump length corresponds to approximate sonographic age of 12weeks and 4 days . Approximate heart rate is 150 beats per minute. Thereis no visualizedsubchorionic collection. The cervical os is closed.The bilateral ovaries are nonvisualized. There isno adnexal mass or fluidcollection.IMPRESSION:1. Single intrauterine gestation with approximate sonographic age of 12 weeksand 4 days. This gives an estimated date of delivery of 12/04/2017.2. No abnormality identified.Arterial Blood [id number] 12:24:00 Test Item Value Reference Range Interpretation Comments pH (test code = PHRT) 7.411 7.350-7.450 pCO2 (test code = 33.6 mmHg 35.0-45.0 L PCO2RT) pO2 (test code = 98.9 mmHg 80.0-110.0 PO2RT) HCO3? (test code = 20.9 mmol/L 22.0-26.0 L HCO3) JEAN-CLAUDE (test code = JEAN-CLAUDE) -2.5 mmol/L -3.0-3.0 tHb (test code = 13.6 g/dL 12.0-15.5 THBRT) sO2 (test code = 98.0 % 92.0-100.0 SO2RT) FO2Hb (test code = 91.5 % 94.0-100.0 L [id number]) FCOHb (test code = 5.5 % 0.0-3.0 H FCOHBRT) FMetHb (test code = 1.1 % 0.2-0.6 H FMETHBRT) ABGTEMP (test code = * Temp Corrected Values* ABGTEMP) ABGTEMP (test code = 37.0 ?C ABGTEMP.) pH (T) (test code = 7.411 7.350-7.450 PHTEMP) pCO2 (T) (test code = 33.6 mmHg 35.0-45.0 L [id number]) pO2 (T) (test code = 98.9 mmHg 80.0-110.0 PG2QFPT) Device (test code = ROOM AIR DEVICE) FI02 (test code = 21.0 % FI02) Liter_flow (test code = LF) VENPAR (test code = * Ventilator Parameters VENPAR) * SIMV (test code = SIMV) A/C (test code = A/C) CPAP (test code = CPAP) PEEP (test code = PEEP) PS (test code = PS) PIP (test code = PIP) I_Time (test code = ITIME) Vt (test code = VT) BIPAP INSP (test code = BIPAPINP) BIPAP EXP (test code = BIPAPEXP) Yared test (test code Positive = ATEST) SAMPLE SITE (test Left Radial Artery code = SSITE) COMMENT (test code = CO) BASIC METABOLIC PANEL 2017-05-26 12:24:00 Test Item Value Reference Range Interpretation Comments GLUCOSE (test code = 06D) 93 mg/dL 75-100 SODIUM (test code = 01A) 141 mmol/L 136-145 POTASSIUM (test code = 01B) 3.5 mmol/L 3.6-5.1 L CHLORIDE (test code = 04A) 110 mmol/L 98-107 H CO2 (test code = 02A) 21 mmol/L 22-32 L ANION GAP (test code = ANG) 13.5 mmol/L BUN (test code = 05D) 5 mg/dL 7-18 L CREATININE (test code = 03E) 0.6 mg/dL 0.4-1.1 BUN/CREA (test code = BCR) 8 12-20 L CALCIUM (test code = 09D) 8.6 mg/dL 8.3-9.5 CBC (INCLUDES AUTOMATED DIFFERENTIAL)*[id number] 12:14:00 Test Item Value Reference Range Interpretation Comments WBC (test code = WBC) 9.5 10\S\3/uL 4.5-11.0 RBC (test code = RBC) 4.51 10\S\6/uL 4.30-5.70 HGB (test code = HBG) 13.3 g/dL 12.0-15.5 HCT (test code = HCT) 38.5 % 35.0-44.0 MCV (test code = MCV) 85.4 fL 81.0-99.0 MCH (test code = MCH) 29.5 pg 27.0-31.0 MCHC (test code = MCHC) 34.5 g/dL 32.0-36.0 RDW (test code = RDW) 13.2 % 11.5-14.5 PLT (test code = PLT) 178 10\S\3/uL 130-400 MPV (test code = MPV) 11.7 fL 9.4-12.4 NEUTROP # (test code = NE#) 6.1 10\S\3/uL 1.6-8.0 LYMPH # (test code = LY#) 2.5 10\S\3/uL 1.1-3.5 MONOCYTE # (test code = MO#) 0.7 10\S\3/uL 0.0-1.1 EOSINOPH # (test code = EO#) 0.1 10\S\3/uL 0.0-0.7 BASOPHIL # (test code = BA#) 0.0 10\S\3/uL 0.0-0.3 IG # (test code = IG#) 0.02 10\S\3/uL 0.00-0.06 NRBC # (test code = NRBC#) 0.00 10\S\3/uL 0.00-0.01 NEUTROPH % (test code = NE%) 64.4 % 35.0-73.0 LYMPH % (test code = LY%) 26.5 % 20.0-55.0 MONO % (test code = MO%) 7.5 % 2.5-10.0 EOSINOPH % (test code = EO%) 1.1 % 0.0-5.0 BASOPHIL % (test code = BA%) 0.3 % 0.0-2.0 IG % (test code = IG%) 0.2 % 0.0-0.8 NRBC% (test code = NRBC%) 0.0 % 0.0-0.2 MANDIFF (test code = WMDIFF) NO NO RBC MORPH (test code = NORMAL WRBCMOR)
[2020-09-23 14:11] LABS: Urine Blood NEGATIVE (NEG); Urine Glucose NEGATIVE (NEG); Urine Protein NEGATIVE (NEG)
--- NOTE | 2020-09-23 14:19 | EDPHYS ---
Physician Documentation [facility] Name: Urvashi Palacios Age: 29 yrs Sex: Female : 1990 Arrival Date: 09/23/2020 Time: 13:41 Bed 20 Private MD: CAT Physician Dima Morocho HPI: 09/23 14:31 This 29 yrs old Female presents to ER via Ambulatory with complaints of Arm kb Pain. 14:31 The patient presents with an abscess of the left antecubital area. Description: kb erythematous, swollen. Onset: The symptoms/episode began/occurred last week. Possible cause(s): "missed when injecting meth". Associated signs and symptoms: Pertinent positives: erythema, swelling, Pertinent negatives: discharge, drainage, foreign body sensation, fever, headache, nausea, shortness of breath, vomiting. Modifying factors: the symptoms are alleviated by nothing, the symptoms are aggravated by nothing. Severity of symptoms: At their worst the symptoms were mild, moderate, in the emergency department the symptoms are unchanged. The patient has not experienced similar symptoms in the past. The patient has not recently seen a physician. 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 - Social history:: Smoking status: Patient reports the use of cigarette tobacco products, smokes one-half pack cigarettes per day. ROS: 14:25 Constitutional: Negative for fever, chills, and weight loss, Cardiovascular: Negative kb for chest pain, palpitations, and edema, Respiratory: Negative for shortness of breath, cough, wheezing, and pleuritic chest pain, Abdomen/GI: Negative for abdominal pain, nausea, vomiting, diarrhea, and constipation, Back: Negative for injury and pain, MS/Extremity: Negative for injury and deformity, Neuro: Negative for headache, weakness, numbness, tingling, and seizure. 14:25 Skin: Positive for abscess, of the left antecubital area. Exam: 14:25 Constitutional: This is a well developed, well nourished patient who is awake, alert, kb and in no acute distress. Head/Face: Normocephalic, atraumatic. Chest/axilla: Normal chest wall appearance and motion. Nontender with no deformity. No lesions are appreciated. Cardiovascular: Regular rate and rhythm with a normal S1 and S2. No gallops, murmurs, or rubs. Normal PMI, no JVD. No pulse deficits. Respiratory: Lungs have equal breath sounds bilaterally, clear to auscultation and percussion. No rales, rhonchi or wheezes noted. No increased work of breathing, no retractions or nasal flaring. Abdomen/GI: Soft, non-tender, with normal bowel sounds. No distension or tympany. No guarding or rebound. No evidence of tenderness throughout. MS/ Extremity: Pulses equal, no cyanosis. Neurovascular intact. Full, normal range of motion. Neuro: Awake and alert, GCS 15, oriented to person, place, time, and situation. Cranial nerves II-XII grossly intact. Motor strength 5/5 in all extremities. Sensory grossly intact. Cerebellar exam normal. Normal gait. 14:25 Skin: abscess, that is small, of the left antecubital area, with induration. Vital Signs: 13:44 BP 118 / 78; Pulse 88; Resp 16; Temp 98.1; Pulse Ox 100% ; Weight 98.88 kg; Height 5 ss ft. 7 in. (170.18 cm); 14:26 BP 112 / 83; Pulse 78; Resp 16; Pulse Ox 100% ; ll1 13:44 Body Mass Index 34.14 (98.88 kg, 170.18 cm) ss MDM: 13:48 Patient medically screened. kb 14:14 Data reviewed: vital signs, nurses notes. Data interpreted: Pulse oximetry: on room air kb is 100 %. Interpretation: normal. Counseling: I had a detailed discussion with the patient and/or guardian regarding: the historical points, exam findings, and any diagnostic results supporting the discharge/admit diagnosis, the need for outpatient follow up, a family practitioner, to return to the emergency department if symptoms worsen or persist or if there are any questions or concerns that arise at home. 09/23 14:00 Order name: Urine Dipstick--Ancillary (enter results); Complete Time: 14:13 bd 09/23 14:00 Order name: Urine --Ancillary (enter results); Complete Time: 14:13 bd Administered Medications: No medications were administered Disposition: 15:48 Co-signature as Attending Physician, Dima Morocho MD I agree with the assessment and kerri plan of care. Disposition: 09/23/20 14:19 Discharged to Home. Impression: Cutaneous abscess of left upper limb - AC . - Condition is Stable. - Discharge Instructions: Skin Abscess, [id number]. - Prescriptions for Bactrim DS 800- 160 mg Oral Tablet - take 1 tablet by ORAL route every 12 hours for 7 days; 14 tablet. - Medication Reconciliation Form, Thank You Letter, Antibiotic Education, Prescription Opioid Use form. - Follow up: Emergency Department; When: As needed; Reason: Worsening of condition. Follow up: Private Physician; When: 2 - 3 days; Reason: Recheck today's complaints, Continuance of care, Re-evaluation by your physician. Signatures: Dispatcher [employer] EDMS Bessie Dominguez, PINKY MALLOY-Dima Valles MD MD cha Smirch, Shelby RN RN Tracie Malhotra RN RN ll1 Corrections: (The following items were deleted from the chart) 14:26 14:19 09/23/2020 14:19 Discharged to Home. Impression: Cutaneous abscess of left upper ll1 limb - AC . Condition is Stable. Forms are Medication Reconciliation Form, Thank You Letter, Antibiotic Education, Prescription Opioid Use. Follow up: Emergency Department; When: As needed; Reason: Worsening of condition. Follow up: Private Physician; When: 2 - 3 days; Reason: Recheck today's complaints, Continuance of care, Re-evaluation by your physician. kb
--- NOTE | 2020-09-23 14:19 | ER ---
Nurse's Notes [facility] Name: Urvashi Palacios Age: 29 yrs Sex: Female : 1990 Arrival Date: 09/23/2020 Time: 13:41 Bed 20 Private MD: Diagnosis: Cutaneous abscess of left upper limb- Presentation: 09/23 13:43 Chief complaint: Patient states: left arm "sharp pains after I missed a shot of ss methamphetamine's" about 2-3 weeks ago. Coronavirus screen: Client denies travel out of the [place] in the last 14 days. At this time, the client does not indicate any symptoms associated with coronavirus-19. Ebola Screen: No symptoms or risks identified at this time. Risk Assessment: Do you want to hurt yourself or someone else? Patient reports no desire to harm self or others. Onset of symptoms was August 2020. 13:43 Method Of Arrival: Ambulatory ss 13:43 Acuity: SETH 3 ss 13:44 Initial Sepsis Screen: Does the patient meet any 2 criteria? No. Patient's initial ss sepsis screen is negative. Does the patient have a suspected source of infection? No. Patient's initial sepsis screen is negative. Triage Assessment: 13:54 Pain:. 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 - Social history:: Smoking status: Patient reports the use of cigarette tobacco products, smokes one-half pack cigarettes per day. Screenin:53 Abuse screen: Denies threats or abuse. Nutritional screening: No deficits noted. ll1 Tuberculosis screening: No symptoms or risk factors identified. 14:05 Fall Risk None identified. ca1 Assessment: 14:05 General: Appears in no apparent distress. comfortable, Behavior is calm, cooperative, ca1 appropriate for age. Pain: Complains of pain in left antecubital area. Neuro: Level of Consciousness is awake, alert, obeys commands, Oriented to person, place, time, situation. Derm: Skin is intact, is healthy with good turgor, Skin is pink, warm \\T\\ dry. Rash noted that is red, raised, on left antecubital area. Musculoskeletal: Circulation, motion, and sensation intact. Capillary refill < 3 seconds. Vital Signs: 13:44 BP 118 / 78; Pulse 88; Resp 16; Temp 98.1; Pulse Ox 100% ; Weight 98.88 kg; Height 5 ss ft. 7 in. (170.18 cm); 14:26 BP 112 / 83; Pulse 78; Resp 16; Pulse Ox 100% ; ll1 13:44 Body Mass Index 34.14 (98.88 kg, 170.18 cm) ED Course: 13:41 Patient arrived in ED. ag5 13:44 Triage completed. ss 13:44 Arm band placed on. ss 13:48 Bessie Doming[facility]-C [facility] kb 13:48 Dima Morocho MD is Attending Physician. kb 13:53 Tracie Malhotra, JERAMIE is Primary Nurse. ll1 13:54 Patient has correct armband on for positive identification. Bed in low position. Call ll1 light in reach. Side rails up X 1. Pulse ox on. NIBP on. 14:06 No provider procedures requiring assistance completed. Patient did not have IV access ca1 during this emergency room visit. Administered Medications: No medications were administered Outcome: 14:19 Discharge ordered by MD. kb 14:26 Discharged to home ambulatory. ll1 14:26 Condition: stable 14:26 Discharge instructions given to patient, Instructed on discharge instructions, follow up and referral plans. medication usage, Demonstrated understanding of instructions, follow-up care, medications, Prescriptions given X 1. 14:26 Patient left the ED. ll1 Signatures: Bessie Dominguez FNP-C FNP-Ckb Smirch, Shelby, RN RN Antoinette Lewis RN RN [facility] Leydi Bryant ag5 Tracie Malhotra RN RN ll1 Corrections: (The following items were deleted from the chart) 13:46 13:44 Pulse 88bpm; Resp 16bpm; Pulse Ox 100%; Temp 98.1F; 98.88 kg; Height 5 ft. 7 in.; BMI: 34.1; ss
[2020-09-23 22:59] VITALS: BP 112/83; O2SAT 100
== END 2020-09-23 14:26 | disposition home or self-care (01) ==
LOC: ER 13:38
DX: L02.414 Cutaneous abscess of left upper limb (principal); F17.210 Nicotine dependence, cigarettes, uncomplicated
CPT/HCPCS: 81003; 81025; 99283

== ENCOUNTER 2020-10-05 18:43 | Emergency (ER) | payer SELFPAY ==
--- OUTSIDE RECORDS SUMMARY | 2020-10-05 18:45 | XMS REPORT | Clinical Summary ---
:1990 Author Organization [facility] Address [address] [place] [address] Care Team Providers Name Role Phone Asked, No Pcp Primary Care Provider Unavailable Allergies Active Allergy Reactions Severity Noted Date Comments Naproxen Itching 11/24/2017 Medications Medication Sig Dispensed Refills Start Date End Date Status Take 1 tablet by 0 Act handy vit,[id number] mouth daily. 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
--- OUTSIDE RECORDS SUMMARY | 2020-10-05 18:45 | XMS REPORT | Continuity of Care Document ---
:1990 Author Organization [facility] t Address [address] [place] [address] Care Team Providers Name Role Phone Asked, [...] trimester, single single gestation gestation Disease Active [place] (normal (normal 11-24 Methodi spontaneou spontaneou 00:00: [...] Maurice Paternal grandfather Colon cancer [place] Social History Social Habit Start Date Stop Date Quantity Comments Source History of tobacco Cigar Smoker [place] use Sex Assigned At [place] M ethodist Cigarettes smoked 2017-11-25 2017-11-25 [place] [facility] current (pack per 00:00:00 00:00:00 day) - Reported Cigarette 2017-11-25 2017-11-25 [place] Method ist pack-years 00:00:00 00:00:00 Tobacco use and 2017-11-25 2017-11-25 Former user [place] [facility] exposure 00:00:00 00:00:00 Alcohol intake 2017-11-25 2017-11-25 Current [place] thodist 00:00:00 00:00:00 non-drinker of alcohol (finding) Smoking Status Start Date Stop Date Source Former smoker 2017-11-25 00:00:00 2017-11-25 00:00:00 [place] [facility] Medications Ordered Filled Start Stop Current Ordering [...] Commen ts Source Name Name Tdap 2017-11-26 [facility] 00:00:00 [place] Procedures This patient has no known procedures. Encounters Start End Encounter Admission Attending Care Care Encounter Source Date/Time Date/Time Type Type Clinicians Facility Department ID 2018-02-01 Inpatient [place] [id number] [place] 09:00:00 [facility] 2019-07-12 2019-07-12 Emergency E TATIANA [facility] [id number] [place] 19:21:00 20:50:00 [facility] [place] 2019-03-27 2019-03-27 Emergency E LISA [facility] [id number] [place] 17:19:00 19:12:00 [facility] [place] 2018-02-01 2018-03-27 Outpatient Chica MCGARRY [facility] PT [id number] [place] 09:02:00 23:59:00 MEHJABIN [facility] [place] 2018-01-23 2018-01-23 Outpatient Chica MCGARRY [facility] RAD [id number] [place] 13:12:00 23:59:00 [facility] 2017-12-23 2017-12-23 Outpatient Chica MCGARRY, [facility] RAD [id number] [place] 09:46:00 23:59:00 [facility] 2017-12-19 2017-12-19 Emergency E LISA, [facility] [id number] [place] 10:29:00 11:40:00 [facility]ENT [facility] 2017-11-17 2017-11-17 Outpatient Chica CA, [facility] OB [id number] [place] 15:37:00 20:19:00 HERACLIO [facility] 2015-03-06 2015-03-06 Emergency E DIVYA, [facility] [id number] [place] 18:11:00 [facility] Results Test Description Test Time Test Comments Results Result [facility] e Comments XR FOOT LEFT 2019-06-24 LOCATION: [id number]: COMPLETE 3 VIEWS 9 28-year-old female who 20:43:23 presents with injury to her left foot.COMMENT: Frontal, oblique, and lateral radiographs of the patient's left foot wereobtained. The skeleton is intact, and normally mineralized. The joint spaces arewell-maintained. The soft tissues are unremarkable.IMPRESSION:Unr emarkable radiographic examination of the left foot. XR ANKLE LEFT 2019-06-24 LOCATION: [id number]: COMPLETE 3 VIEWS 9 28-year-old female who 20:37:00 presents with an injury to her left ankle.COMMENT: Frontal, oblique, and lateral radiographs of the patient's left ankle wereobtained.The skeleton is intact, and normally mineralized. The mortise joint andsubtalar joints are preserved. The surrounding soft tissues are unremarkable.IMPRESSION:Unr emarkable radiographic examination of the left ankle. XR SHOULDER LOCATION: [id number]: RIGHT 3 VIEWS 4 28-year-old female who [...] right shoulder. XR CHEST 1 VIEW LOCATION: [id number]: PORTABLE 4 28-year-old female who 18:36:12 presents [...] without W/O CONTRAST*WW* 2 contrastLocation code: 14:47:15 [id number]: M54.5: LOW BACK PAINCOMPARISON: None.Technique: Multiplanar multisequence [...] LUMBAR LUMBAR SPINE 5 COMPLETE*WW* 2 VIEWS:Location: H8Inzjjyy: 10:28:56 pain in spine.Comparison: None.FINDINGS:AP, bilateral oblique, [...] BIO-PHYSICAL 2017-10-25 Location of dictation: PROFILE*WW* 5 [id number] PROFILE: 18:51:14 CLINICAL INDICATION: [id number]: growth restrictionTECHNIQUE: Dynamic scanning of the gravid [...] OBSTETRIC ULTRASOUND >14 WEEKS 6 Location code: [id number] 16:03:35 HISTORY: Vomiting, diarrheaGA by first US: [...] Test Item Value Reference Range Interpretation Comme [facility] QUANT (test code = B51) 1265.00 mIU/mL BHCGQ (test code = BHCQ) QUANTITATIVE [...] 12 10,000 - 100,000 XR CHEST 2 [id number] 14:48:00PA and lateral chest, 2 views.Location code: [id number] HISTORY: Cough, shortness of breathCOMPARISON: 10/24/2014COMMENTS: The lungs are clear and well inflated. The costophrenic angles aresharp. The ca rdiomediastinal silhouette is unremarkable. The bones are intact.IMPRESSION: No acute abnormalityAMYLASE AND [id number] 14:38:00 Test Item Value Reference Range Interpretation Comments AMYLASE (test code = 10A) 36 U/L 28-100 LIPASE (test code = 60A) 76 IU/L 73-393 COMPREHENSIVE METABOLIC [id number] 14:38:00 Test Item Value Reference Range Interpretation [...] = 31A) 22 IU/L <=78 URINALYSIS WITH [id number] 14:24:00 Test Item Value Reference Range Interpretation [...] (test code = RBCMOR) NORMAL Arterial Blood [id number] 14:11:00 Test Item Value Reference Range Interpretation [...] FO2Hb (test code = 96.2 % 94.0-100.0 UI4GXZW) FCOHb (test code = 2.6 % 0.0-3.0 FCOHBRT) FMetHb (test code = 0.8 % 0.2-0.6 H FMETHBRT) ABGTEMP (test code = * Temp Corrected Values* ABGTEMP) ABGTEMP (test code = 37.0 ?C ABGTEMP.) pH (T) (test code = 7.396 7.350-7.450 PHTEMP) pCO2 (T) (test code = 34.8 mmHg 35.0-45.0 L VCQ5GVHA) pO2 (T) (test code = 234.0 mmHg 80.0-110.0 H KQ3STWK) Device (test code = NON RE-GONZALO MASK [...] 14 WEEKS*WW*2017-05-26 14:06:09PELVIC AND TRANSVAGINAL ULTRASOUNDLocation code: [id number] HISTORY: , carbon monoxide exposu reTECHNIQUE: Multiple high resolution images were obtained through the pelvis using amultifrequency curved transducer followed by a transvaginal probe.FINDINGS: The uterus measures 12.2 x 8.8 x 8.0 cm.There is a single intrauterinepregnancy. [place]-rump length corresponds to approximate sonographic age of [...] delivery of 12/04/2017.2. No abnormality identified.Arterial Blood [id number] 12:24:00 Test Item Value Reference Range Interpretation [...] (test code = 91.5 % 94.0-100.0 L NF9AUYL) FCOHb (test code = 5.5 % 0.0-3.0 H FCOHBRT) FMetHb (test code = 1.1 % 0.2-0.6 H FMETHBRT) ABGTEMP (test code = * Temp Corrected Values* ABGTEMP) ABGTEMP (test code = 37.0 ?C ABGTEMP.) pH (T) (test code = 7.411 7.350-7.450 PHTEMP) pCO2 (T) (test code = 33.6 mmHg 35.0-45.0 L [id number]) pO2 (T) (test code = 98.9 mmHg 80.0-110.0 TW2BWIV) Device (test code = ROOM AIR DEVICE) [...] 09D) 8.6 mg/dL 8.3-9.5 CBC (INCLUDES AUTOMATED DIFFERENTIAL)*[id number] 12:14:00 Test Item Value Reference Range Interpretation [...]
[2020-10-05] MEDS ORDERED: HYDROCODONE/APAP 5/325 MG TAB ONE (19:23)
[2020-10-05] MEDS ORDERED: KETOROLAC 30 MG/ML INJ ONE (21:05)
--- NOTE | 2020-10-05 22:03 | EDPHYS ---
Physician Documentation [facility] Name: Urvashi Palacios Age: 29 yrs Sex: Female : 1990 Arrival Date: 10/05/2020 Time: 18:43 Bed 13 Private MD: ED Physician Harish Alva HPI: 10/05 22:26 This 29 yrs old Female presents to ER via Wheelchair with complaints of Ankle pm1 Pain. 22:26 Onset: The symptoms/episode began/occurred 1 hour prior to arrival . pm1 22:26 The complaints affect the left lateral ankle. Context: resulted from twisting of the pm1 extremity, getting out of bed, the patient can partially bear weight, the patient is able to ambulate, with moderate difficulty. Modifying factors: The symptoms are alleviated by elevating leg, the symptoms are aggravated by weight bearing. Associated signs and symptoms: Pertinent positives: swelling, Pertinent negatives calf tenderness, numbness, tingling. Treatment prior to arrival includes: no previous treatment. Severity of symptoms: in the emergency department the symptoms are unchanged. The patient has not recently seen a physician. 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 - Social history:: Smoking status: Patient reports the use of cigarette tobacco products, smokes one-half pack cigarettes per day. ROS: 22:26 Constitutional: Negative for fever, chills, and weight loss. pm1 22:26 Cardiovascular: Negative for chest pain, palpitations, and edema, Respiratory: Negative for shortness of breath, cough, wheezing, and pleuritic chest pain, Skin: Negative for injury, rash, and discoloration, Neuro: Negative for headache, weakness, numbness, tingling, and seizure. 22:26 MS/extremity: Positive for pain, of the left lateral ankle, Negative for decreased range of motion, deformity. Exam: 22:26 Constitutional: This is a well developed, well nourished patient who is awake, alert, pm1 and in no acute distress. Head/Face: Normocephalic, atraumatic. 22:26 Skin: Warm, dry with normal turgor. Normal color with no rashes, no lesions, and no evidence of cellulitis. 22:26 Cardiovascular: Exam negative for acute changes, Rate: normal, Rhythm: regular, Pulses: no pulse deficits are appreciated. 22:26 Respiratory: Exam negative for acute changes, respiratory distress, shortness of breath. 22:26 Musculoskeletal/extremity: Extremities: grossly normal except: noted in the left lateral ankle: tenderness, There is no evidence of decreased ROM, deformity, swelling, Circulation is intact in all extremities. 22:26 Neuro: Exam negative for acute changes, Orientation: is normal, Mentation: is normal, Motor: is normal, moves all fours. Vital Signs: 18:52 BP 108 / 83; Pulse 94; Resp 16 S; Temp 97.3(TE); Pulse Ox 100% on R/A; Weight 99.79 kg ca1 (R); Height 5 ft. 7 in. (170.18 cm) (R); Pain 7/10; 22:37 BP 105 / 84; Pulse 96; Resp 18; Pulse Ox 100% on R/A; zb 18:52 Body Mass Index 34.46 (99.79 kg, 170.18 cm) ca1 MDM: 20:43 Patient medically screened. pm1 21:59 Data reviewed: vital signs. Data interpreted: Pulse oximetry: on room air is 100 %. pm1 Interpretation: normal. Counseling: I had a detailed discussion with the patient and/or guardian regarding: the historical points, exam findings, and any diagnostic results supporting the discharge/admit diagnosis, radiology results, the need for outpatient follow up, for definitive care, a orthopedic surgeon, to return to the emergency department if symptoms worsen or persist or if there are any questions or concerns that arise at home. 10/05 18:55 Order name: Ankle Left 3 View XRAY; Complete Time: 13:11 ca1 10/05 18:55 Order name: Foot Left 3 View XRAY; Complete Time: 13:11 ca1 10/05 21:59 Order name: Crutches; Complete Time: 22:42 pm1 10/05 21:59 Order name: Splint - Ankle: Orthoglass: [place]; Complete Time: 22:19 pm1 Administered Medications: 19:10 Drug: [place] 5 mg-325 mg 1 tabs Route: PO; dm5 20:00 Follow up: Response: No adverse reaction zb 20:54 Drug: TORadol 60 mg Route: IM; Site: left deltoid; zb 21:30 Follow up: Response: No adverse reaction; Pain is decreased zb Disposition: 10/06 02:51 Co-signature as Attending Physician, Harish Alva MD. 7 Disposition: 10/05/20 22:00 Discharged to Home. Impression: Sprain of unspecified ligament of left ankle. - Condition is Stable. - Discharge Instructions: Ankle Sprain, Cast or Splint Care, Adult, Crutch Use. - Prescriptions for Diclofenac Sodium 75 mg Oral Tablet Sustained Release - take 1 tablet by ORAL route 2 times per day; 30 tablet. - Medication Reconciliation Form, Thank You Letter, Antibiotic Education, Prescription Opioid Use form. - Follow up: Emergency Department; When: As needed; Reason: Worsening of condition. Follow up: Private Physician; When: 2 - 3 days; Reason: Recheck today's complaints, Continuance of care, Re-evaluation by your physician. - Problem is new. - Symptoms have improved. Signatures: Dispatcher [employer] EDMS Chelsea De La Fuente RN RN 5 Maxx Sandy, YOGESH WEED COOKING OPERATOR pm1 Antoinette Lewis RN JERAMIE [facility] Harish Alva MD MD [facility] Manuela Herrera RN RN zb Corrections: (The following items were deleted from the chart) 10/05 22:42 22:00 10/05/2020 22:00 Discharged to Home. Impression: Sprain of unspecified ligament zb of left ankle. Condition is Stable. Forms are Medication Reconciliation Form, Thank You Letter, Antibiotic Education, Prescription Opioid Use. Follow up: Emergency Department; When: As needed; Reason: Worsening of condition. Follow up: Private Physician; When: 2 - 3 days; Reason: Recheck today's complaints, Continuance of care, Re-evaluation by your physician. Problem is new. Symptoms have improved. pm1
--- NOTE | 2020-10-05 22:03 | ER ---
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 Reports pain on L foot and ca1 L ankle. Coronavirus screen: Client denies travel out of the [place] in the last 14 days. At this time, the client does not indicate any symptoms associated with coronavirus-19. Ebola Screen: Patient negative for fever greater than or equal to 101.5 degrees Fahrenheit, and additional compatible Ebola Virus Disease symptoms Patient denies exposure to infectious person. Patient denies travel to an Ebola-affected area in the 21 days before illness onset. No symptoms or risks identified at this time. Initial Sepsis Screen: Does the patient meet any 2 criteria? No. Patient's initial sepsis screen is negative. Does the patient have a suspected source of infection? No. Patient's initial sepsis screen is negative. Risk Assessment: Do you want to hurt yourself or someone else? Patient reports no desire to harm self or others. Onset of symptoms was October 05, 2020. 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 - Social history:: Smoking status: Patient reports the use of cigarette tobacco products, smokes one-half pack cigarettes per day. Screenin:00 Abuse screen: Denies threats or abuse. Denies injuries from another. Nutritional zb screening: No deficits noted. Tuberculosis screening: No symptoms or risk factors identified. Fall Risk No fall in past 12 months (0 pts). No secondary diagnosis (0 pts). No IV (0 pts). Ambulatory Aid- Crutches/Cane/Walker (15 pts). Gait- Impaired (20 pts.). Mental Status- Oriented to own ability (0 pts). Total Rice Fall Scale indicates Low Risk Score (25-44 pts). Fall prevention measures have been instituted. Side Rails Up X 2 Placed close to Nursing Station Frequent Obs/Assesments occuring Family Present and informed to notify staff if they need to leave bedside As available Patient and Family Educated on Fall Prevention Program and strategies. Assessment: 20:45 General: Appears in no apparent distress. distressed, Behavior is calm, cooperative, zb appropriate for age. Pain: Complains of pain in left lateral ankle and anterior aspect of left ankle Pain radiates to instep of left foot Pain currently is 8 out of 10 on a pain scale. Quality of pain is described as aching, pressure, Pain began suddenly, 3 hours ago. Is continuous. Neuro: Level of Consciousness is awake, alert, obeys commands, Oriented to person, place, time, situation. Cardiovascular: Heart tones S1 S2 present Capillary refill < 3 seconds in bilateral fingers Patient's skin is warm and dry. Respiratory: Airway is patent Respiratory effort is even, unlabored, Respiratory pattern is regular, symmetrical, Breath sounds are clear bilaterally. GI: No signs and/or symptoms were reported involving the gastrointestinal system. Abdomen is round non-distended. : No signs and/or symptoms were reported regarding the genitourinary system. EENT: Derm: Skin is intact, is healthy with good turgor, Skin is dry, Skin is pink, warm \\T\\ dry. normal. Musculoskeletal: Capillary refill < 3 seconds, in bilateral fingers. Range of motion: limited in left ankle Swelling absent present in left lateral ankle. 21:30 Reassessment: Patient appears in no apparent distress at this time. Patient and/or zb family updated on plan of care and expected duration. Pain level reassessed. Patient is alert, oriented x 3, equal unlabored respirations, skin warm/dry/pink. pt wheel to restroom. 22:33 Reassessment: Patient appears in no apparent distress at this time. Patient and/or zb family updated on plan of care and expected duration. Pain level reassessed. Patient is alert, oriented x 3, equal unlabored respirations, skin warm/dry/pink. d/c instructions given. pain decreased. crutches given, and splint was applied. Vital Signs: 18:52 BP 108 / 83; Pulse 94; Resp 16 S; Temp 97.3(TE); Pulse Ox 100% on R/A; Weight 99.79 kg ca1 (R); Height 5 ft. 7 in. (170.18 cm) (R); Pain 7/10; 22:37 BP 105 / 84; Pulse 96; Resp 18; Pulse Ox 100% on R/A; zb 18:52 Body Mass Index 34.46 (99.79 kg, 170.18 cm) ca1 ED Course: 18:43 Patient arrived in ED. ag5 18:53 Triage completed. ca1 18:54 Arm band placed on right wrist. ca1 19:06 Maxx Sandy [facility] pm1 20:00 Patient has correct armband on for positive identification. Bed in low position. Call zb light in reach. Side rails up X 1. 20:47 Harish Alva MD is Attending Physician. pm1 20:49 Manuela Herrera RN is Primary Nurse. zb 21:21 Ankle Left 3 View XRAY In Process Unspecified. EDMS 21:21 Foot Left 3 View XRAY In Process Unspecified. EDMS 22:30 No provider procedures requiring assistance completed. Patient did not have IV access zb during this emergency room visit. 22:33 Orthoglass splint: stirrup splint applied on left leg. dh4 Administered Medications: 19:10 Drug: [place] 5 mg-325 mg 1 tabs Route: PO; dm5 20:00 Follow up: Response: No adverse reaction zb 20:54 Drug: TORadol 60 mg Route: IM; Site: left deltoid; zb 21:30 Follow up: Response: No adverse reaction; Pain is decreased zb Outcome: 22:00 Discharge ordered by . pm1 22:30 Discharged to home with crutches. zb 22:30 Condition: stable 22:30 Discharge instructions given to patient, Instructed on discharge instructions, follow up and referral plans. medication usage, Demonstrated understanding of instructions, follow-up care, medications, Prescriptions given X 1. 22:42 Patient left the ED. zb Signatures: Dispatcher [employer] EDMS Chelsea De La Fuente RN RN dm5 Maxx Sandy, YOGESH HEEL TOP LIFT SPLITTER pm1 Antoinette Lewis RN RN ca1 Leydi Bryant ag5 Juan Luis Mccormick dh4 Manuela Herrera, JERAMIE RN zb
--- NOTE | 2020-10-06 07:49 | RAD REPORT ---
EXAM DESCRIPTION: RAD - Ankle Left 3 View -10/05/2020 9:20 pm CLINICAL HISTORY: Left ankle pain status post injury FINDINGS: No fracture or dislocation is seen.
--- NOTE | 2020-10-06 07:51 | RAD REPORT ---
EXAM DESCRIPTION: RAD - Foot Left 3 View - 10/05/2020 9:20 pm CLINICAL HISTORY: Left Foot pain FINDINGS: No fracture or dislocation is seen. Large calcaneal spurs are present
[2020-10-09 04:26] VITALS: TEMP 97.3; O2SAT 100
[2020-10-09 04:29] VITALS: BP 105/84
== END 2020-10-05 22:42 | disposition home or self-care (01) ==
LOC: ER 18:43
DX: S93.402A Sprain of unspecified ligament of left ankle, initial encounter (principal); X50.1XXA Overexertion from prolonged static or awkward postures, initial encounter; Y93.89 Activity, other specified; Y92.003 Bedroom of unspecified non-institutional (private) residence as the place of occurrence of the external cause; F17.210 Nicotine dependence, cigarettes, uncomplicated
CPT/HCPCS: 96372; 99284

== ENCOUNTER 2020-10-25 09:05 | Emergency (ER) | payer SELFPAY ==
--- OUTSIDE RECORDS SUMMARY | 2020-10-25 09:07 | XMS REPORT | Clinical Summary ---
:1990 Author Organization [facility] Address [address] [place] [address] Care Team Providers Name Role Phone Asked, No Pcp Primary Care Provider Unavailable Allergies Active Allergy Reactions Severity Noted Date Comments Naproxen Itching 11/24/2017 Medications Medication Sig Dispensed Refills Start Date End Date Status Take 1 tablet by 0 Act handy vit,[id number] mouth daily. 29 mg iron- 1 mg [...] M Vag-Spont Epidu N Kaur 8 9 PALACIOSBryce 1d 36m/0h 02m 6.3 oz ral ng S MASHA n, A BOY Irina hess MD Complications: None Delivery Location: [facility] Last Filed Vital Signs Not on file Plan of Treatment Not on file Results Not on fileafter 10/25/2019 Insurance Payer Benefit Plan / Subscriber ID Effective Dates Phone Addre ss Type Group [email or web address] [id number] 2017-Present HMO CHOICE [facility] Advance Directives For more information, please contact: [phone] Type Date Recorded Patient Distribution Agent Explanati on Advance Directives, Living Will 11/24/2017 4:52 AM and Medical Power of Leach Runner Code Status Date Activated Date Inactivated Comments Full Code 11/25/2017 8:48 AM 11/26/2017 2:57 PM Code Status decision reached by: Patient Full Code 11/24/2017 5:02 AM 11/24/2017 7:35 PM Code Status decision reached by: Patient
--- OUTSIDE RECORDS SUMMARY | 2020-10-25 09:07 | XMS REPORT | Continuity of Care Document ---
:1990 Author Organization [facility] t Address [address] [place] [address] Care Team Providers Name Role Phone Asked, Pcp Primary Care Physician Unavailable DR ROBY Attending Clinician Unavailable DR Cat SIMPSON Attending Clinician Unavailable DR LISA Attending Clinician Unavailable DR Nataly MCGARRY Attending Clinician Unavailable DR Margie GONZAELZ Attending Clinician Unavailable Desmond PINA Attending Clinician [...] trimester, single single gestation gestation Disease Active [place] (normal (normal 11-24 Methodi spontaneou spontaneou 00:00: [...] Date Source Maternal grandmother Breast cancer [place] Mauirce Paternal grandfather Colon cancer [place] Y[facility] Social History Social Habit Start Date Stop Date Quantity Comments Source History of tobacco Cigar Smoker [place] Yazidi use Sex Assigned At [place] M ethodist Cigarettes smoked 2017-11-25 2017-11-25 [place] Yazidi current (pack per 00:00:00 00:00:00 day) - Reported Cigarette 2017-11-25 2017-11-25 [place] Method ist pack-years 00:00:00 00:00:00 Tobacco use and 2017-11-25 2017-11-25 Former user [place] Yazidi exposure 00:00:00 00:00:00 Alcohol intake 2017-11-25 2017-11-25 Current [place] thodist 00:00:00 00:00:00 non-drinker of alcohol (finding) Smoking Status Start Date Stop Date Source Former smoker 2017-11-25 00:00:00 2017-11-25 00:00:00 [place] Yazidi Medications Ordered Filled Start Stop Current Ordering [...] Commen ts Source Name Name Tdap 2017-11-26 [facility] 00:00:00 Yazidi Procedures This patient has no known procedures. Encounters Start End Encounter Admission Attending Care Care Encounter Source Date/Time Date/Time Type Type Clinicians Facility Department ID 2018-02-01 [id number] 2019-07-12 2019-07-12 Emergency E TATIANA [facility] [id number] [place] 19:21:00 20:50:00 [facility] 2019-03-27 2019-03-27 Emergency E LISA [facility] [id number] [place] 17:19:00 19:12:00 [facility] 2018-02-01 2018-03-27 Outpatient Chica MCGARRY [facility] PT [id number] [place] 09:02:00 23:59:00 MEHJABIN [facility] 2018-01-23 2018-01-23 Outpatient Chica MCGARRY [facility] RAD [id number] [place] 13:12:00 23:59:00 [facility] 2017-12-23 2017-12-23 Outpatient Chica MCGARRY, [facility] RAD [id number] [place] 09:46:00 23:59:00 [facility] 2017-12-19 2017-12-19 Emergency E LISA, [facility] [id number] [place] 10:29:00 11:40:00 [facility] 2017-11-17 2017-11-17 Outpatient Chica CA, [facility] OB [id number] [place] 15:37:00 20:19:00 [facility] 2015-03-06 2015-03-06 Emergency E DIVYA, [facility] [id number] [place] 18:11:00 22:20:00 [facility] Results Test Description Test Time Test Comments Results Result Sour e Comments XR FOOT LEFT 2019-06-24 LOCATION: [id number]: COMPLETE 3 VIEWS 9 28-year-old female who 20:43:23 presents with injury to her left foot.COMMENT: Frontal, oblique, and lateral radiographs of the patient's left foot wereobtained. The skeleton is intact, and normally mineralized. The joint spaces arewell-maintained. The soft tissues are unremarkable.IMPRESSION:Unr emarkable radiographic examination of the left foot. XR ANKLE LEFT 2019-06-24 LOCATION: [id number]: COMPLETE 3 VIEWS 9 28-year-old female who 20:37:00 presents with an injury to her left ankle.COMMENT: Frontal, oblique, and lateral radiographs of the patient's left ankle wereobtained.The skeleton is intact, and normally mineralized. The mortise joint andsubtalar joints are preserved. The surrounding soft tissues are unremarkable.IMPRESSION:Unr emarkable radiographic examination of the left ankle. XR SHOULDER LOCATION: [id number]: RIGHT 3 VIEWS 4 28-year-old female who [...] right shoulder. XR CHEST 1 VIEW LOCATION: [id number]: PORTABLE 4 28-year-old female who 18:36:12 presents [...] without W/O CONTRAST*WW* 2 contrastLocation code: 14:47:15 V2CWXYYYP: M54.5: LOW BACK PAINCOMPARISON: None.Technique: Multiplanar multisequence [...] LUMBAR LUMBAR SPINE 5 COMPLETE*WW* 2 VIEWS:Location: L5Oihjqwx: 10:28:56 pain in spine.Comparison: None.FINDINGS:AP, bilateral oblique, [...] BIO-PHYSICAL 2017-10-25 Location of dictation: PROFILE*WW* 5 P5YCCHHUTESUS PROFILE: 18:51:14 CLINICAL INDICATION: [id number]: growth restrictionTECHNIQUE: Dynamic scanning of the gravid [...] OBSTETRIC ULTRASOUND >14 WEEKS 6 Location code: [id number] 16:03:35 HISTORY: Vomiting, diarrheaGA by first US: [...] Test Item Value Reference Range Interpretation Comme [facility] QUANT (test code = V30) 2596.00 mIU/mL BHCGQ (test code = BHCQ) QUANTITATIVE [...] 12 10,000 - 100,000 XR CHEST 2 [id number] 14:48:00PA and lateral chest, 2 views.Location code: [id number] HISTORY: Cough, shortness of breathCOMPARISON: 10/24/2014COMMENTS: The lungs are clear and well inflated. The costophrenic angles aresharp. The ca rdiomediastinal silhouette is unremarkable. The bones are intact.IMPRESSION: No acute abnormalityAMYLASE AND [id number] 14:38:00 Test Item Value Reference Range Interpretation Comments AMYLASE (test code = 10A) 36 U/L 28-100 LIPASE (test code = 60A) 76 IU/L 73-393 COMPREHENSIVE METABOLIC [id number] 14:38:00 Test Item Value Reference Range Interpretation [...] = 31A) 22 IU/L <=78 URINALYSIS WITH [id number] 14:24:00 Test Item Value Reference Range Interpretation [...] (test code = RBCMOR) NORMAL Arterial Blood [id number] 14:11:00 Test Item Value Reference Range Interpretation [...] FO2Hb (test code = 96.2 % 94.0-100.0 ES0CTUM) FCOHb (test code = 2.6 % 0.0-3.0 FCOHBRT) FMetHb (test code = 0.8 % 0.2-0.6 H FMETHBRT) ABGTEMP (test code = * Temp Corrected Values* ABGTEMP) ABGTEMP (test code = 37.0 ?C ABGTEMP.) pH (T) (test code = 7.396 7.350-7.450 PHTEMP) pCO2 (T) (test code = 34.8 mmHg 35.0-45.0 L UMB1YQVC) pO2 (T) (test code = 234.0 mmHg 80.0-110.0 H DH0SNUU) Device (test code = NON RE-GONZALO MASK [...] 14 WEEKS*WW*2017-05-26 14:06:09PELVIC AND TRANSVAGINAL ULTRASOUNDLocation code: [id number] HISTORY: , carbon monoxide exposu reTECHNIQUE: Multiple high resolution images were obtained through the pelvis using amultifrequency curved transducer followed by a transvaginal probe.FINDINGS: The uterus measures 12.2 x 8.8 x 8.0 cm.There is a single intrauterinepregnancy. [place]-rump length corresponds to approximate sonographic age of [...] delivery of 12/04/2017.2. No abnormality identified.Arterial Blood [id number] 12:24:00 Test Item Value Reference Range Interpretation [...] (test code = 91.5 % 94.0-100.0 L PS2FZKP) FCOHb (test code = 5.5 % 0.0-3.0 H FCOHBRT) FMetHb (test code = 1.1 % 0.2-0.6 H FMETHBRT) ABGTEMP (test code = * Temp Corrected Values* ABGTEMP) ABGTEMP (test code = 37.0 ?C ABGTEMP.) pH (T) (test code = 7.411 7.350-7.450 PHTEMP) pCO2 (T) (test code = 33.6 mmHg 35.0-45.0 L GMH0BEWF) pO2 (T) (test code = 98.9 mmHg 80.0-110.0 LM7YYGZ) Device (test code = ROOM AIR DEVICE) [...] 09D) 8.6 mg/dL 8.3-9.5 CBC (INCLUDES AUTOMATED DIFFERENTIAL)*[id number] 12:14:00 Test Item Value Reference Range Interpretation [...]
[2020-10-25] MEDS ORDERED: CYCLOBENZAPRINE 10 MG TAB ONE (09:45)
[2020-10-25] MEDS ORDERED: LIDOCAINE 4% PATCH ONE (09:46)
[2020-10-25] MEDS ORDERED: HYDROCODONE/APAP 10/325 TAB ONE (09:46)
[2020-10-25] MEDS ORDERED: KETOROLAC 30 MG/ML INJ ONE (09:46)
--- NOTE | 2020-10-25 10:13 | RAD REPORT ---
EXAM DESCRIPTION: RAD - Thoracic Spine Ap/Lat - 10/25/2020 9:48 am CLINICAL HISTORY: Back pain FINDINGS: Mild kyphosis. Mild scoliosis No fracture is seen. No dislocation. Mild to moderate spondylosis involves the mid and distal thoracic spine mainly consisting disc space narrowing and osteophytes
--- NOTE | 2020-10-25 10:24 | ER ---
Nurse's Notes [facility] Name: Urvashi Palacios Age: 29 yrs Sex: Female : 1990 Arrival Date: 10/25/2020 Time: 09:06 Bed 6 Private MD: Diagnosis: Pain in thoracic spine Presentation: 10/25 09:18 Chief complaint: Patient states: mid-low back pain that began yesterday morning. Pt ss reports that she is unable to stand straight up. Hx of chronic back problems, but nothing like this. Denies injury. Coronavirus screen: Client denies travel out of the [place] in the last 14 days. Ebola Screen: Patient denies exposure to infectious person. Patient denies travel to an Ebola-affected area in the 21 days before illness onset. Initial Sepsis Screen: Does the patient meet any 2 criteria? No. Patient's initial sepsis screen is negative. Does the patient have a suspected source of infection? No. Patient's initial sepsis screen is negative. Risk Assessment: Do you want to hurt yourself or someone else? Patient reports no desire to harm self or others. Onset of symptoms was October 24, 2020. 09:18 Method Of Arrival: Ambulatory ss 09:18 Acuity: SETH 4 ss Historical: - Allergies: 09:22 No Known Allergies; ss - Home Meds: 09:22 None [Active]; ss - PMHx: 09:22 "degenerative arthritis in back"; ss - PSHx: 09:22 Cholecystectomy; ss - Immunization history:: Adult Immunizations up to date. - Social history:: Smoking status: Patient reports the use of cigarette tobacco products, smokes one-half pack cigarettes per day. Screenin:24 Abuse screen: Denies threats or abuse. Nutritional screening: No deficits noted. em Tuberculosis screening: No symptoms or risk factors identified. Fall Risk None identified. Assessment: 09:32 General: Appears in no apparent distress. uncomfortable, Behavior is calm, cooperative, em appropriate for age, Denies fever. Pain: Complains of pain in thoracic area Pain currently is 7 out of 10 on a pain scale. Pain began 2-3 days ago. Neuro: Level of Consciousness is awake, alert, obeys commands, Oriented to person, place, time, situation, Appropriate for age. Cardiovascular: Capillary refill < 3 seconds Patient's skin is warm and dry. Respiratory: Airway is patent. : Denies burning with urination. Derm: Skin is intact, is healthy with good turgor, Skin is pink, warm \\T\\ dry. Musculoskeletal: Capillary refill < 3 seconds, Range of motion: intact in all extremities. 09:34 Reassessment: pt denies any chance being . em Vital Signs: 09:18 BP 131 / 94; Pulse 98; Resp 16; Temp 98.3(TE); Pulse Ox 100% on R/A; Weight 99.79 kg; ss Height 5 ft. 7 in. (170.18 cm); Pain 7/10; 09:18 Body Mass Index 34.46 (99.79 kg, 170.18 cm) ED Course: 09:06 Patient arrived in ED. rg4 09:07 Maxx Sandy NP is PHCP. pm1 09:07 Dima Morocho MD is Attending Physician. pm1 09:16 Miguel Brooke, RN is Primary Nurse. em 09:22 Triage completed. ss 09:22 Arm band placed on right wrist. ss 09:24 Patient has correct armband on for positive identification. Bed in low position. Call em light in reach. Adult w/ patient. 09:48 Spine Thoracic Ap/Lat XRAY In Process Unspecified. EDMS Administered Medications: 09:35 Drug: [place] 10 mg-325 mg 1 tabs Route: PO; em 10:14 Follow up: Response: No adverse reaction; Marked relief of symptoms; Pain is decreased; em RASS: Alert and Calm (0) 09:35 Drug: Flexeril 10 mg Route: PO; em 10:14 Follow up: Response: No adverse reaction; Marked relief of symptoms; Pain is decreased; em RASS: Alert and Calm (0) 10:13 Drug: Lidoderm 5 % (700 mg/patch) 1 patches Route: Topical; Site: affected area; em 10:13 Drug: TORadol 60 mg Route: IM; Site: right deltoid; em Outcome: 10:23 Discharge ordered by . pm1 10:43 Patient left the ED. sv Signatures: Dispatcher [employer] EDYani Gomez RN RN Miguel Brooke RN RN em Smirch, Shelby, RN RN Maxx Sandy NP [employer] FOUNTAIN MANAGER pm1 Roxane Trevino rg4
--- NOTE | 2020-10-25 10:24 | EDPHYS ---
Physician Documentation [facility] Name: Urvashi Palacios Age: 29 yrs Sex: Female : 1990 Arrival Date: 10/25/2020 Time: 09:06 Bed 6 Private MD: ACT Physician Dima Morocho HPI: 10/25 09:25 This 29 yrs old Female presents to ER via Ambulatory with complaints of Back pm1 Pain. 09:25 The patient presents with pain that is acute, with no known mechanism of injury. The pm1 symptoms are located in the thoracic area. Onset: The symptoms/episode began/occurred 3 day(s) ago. The pain does not radiate. Associated signs and symptoms: The patient has no apparent associated signs or symptoms, Pertinent negatives: chest pain, dysuria, fever, headache, incontinence, numbness, tingling. 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 Has not had imaging of thoracic back in the past. Modifying factors: The patient symptoms are alleviated by remaining still, the patient symptoms are aggravated by movement. Severity of symptoms: in the emergency department the symptoms are unchanged, no improvement with OTC pain medications and rubs. The patient has experienced similar episodes in the past, chronic lower back pain. The patient has not recently seen a physician. 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 - Social history:: Smoking status: Patient reports the use of cigarette tobacco products, smokes one-half pack cigarettes per day. ROS: 09:25 Constitutional: Negative for fever, chills, and weight loss, Cardiovascular: Negative pm1 for chest pain, palpitations, and edema, Respiratory: Negative for shortness of breath, cough, wheezing, and pleuritic chest pain. 09:25 MS/Extremity: Negative for injury and deformity, Skin: Negative for injury, rash, and discoloration, Neuro: Negative for headache, weakness, numbness, tingling, and seizure. 09:25 Back: Positive for pain with movement, of the thoracic area. Exam: 09:25 Constitutional: This is a well developed, well nourished patient who is awake, alert, pm1 and in no acute distress. Head/Face: Normocephalic, atraumatic. 09:25 Skin: Warm, dry with normal turgor. Normal color with no rashes, no lesions, and no evidence of cellulitis. MS/ Extremity: Pulses equal, no cyanosis. Neurovascular intact. Full, normal range of motion. 09:25 Cardiovascular: Exam negative for acute changes, Rate: normal, Rhythm: regular, Pulses: no pulse deficits are appreciated. 09:25 Respiratory: Exam negative for acute changes, respiratory distress, shortness of breath. 09:25 Back: pain, that is mild, of the thoracic area, kyphosis, that is mild, scoliosis that is mild. 09:25 Neuro: Exam negative for acute changes, Orientation: is normal, Mentation: is normal, Motor: is normal, moves all fours, Sensation: is normal, no obvious gross deficits, Gait: is steady, at a normal pace, without difficulty. Vital Signs: 09:18 BP 131 / 94; Pulse 98; Resp 16; Temp 98.3(TE); Pulse Ox 100% on R/A; Weight 99.79 kg; ss Height 5 ft. 7 in. (170.18 cm); Pain 7/10; 09:18 Body Mass Index 34.46 (99.79 kg, 170.18 cm) ss MDM: 09:17 Patient medically screened. pm1 10:22 Data reviewed: vital signs. Data interpreted: Pulse oximetry: on room air is 100 %. pm1 Interpretation: normal. Counseling: I had a detailed discussion with the patient and/or guardian regarding: the historical points, exam findings, and any diagnostic results supporting the discharge/admit diagnosis, radiology results, the need for outpatient follow up, a family practitioner, a neurosurgeon, to return to the emergency department if symptoms worsen or persist or if there are any questions or concerns that arise at home. 10/25 09:24 Order name: Spine Thoracic Ap/Lat XRAY; Complete Time: 10:22 pm1 Administered Medications: 09:35 Drug: Mayview 10 mg-325 mg 1 tabs Route: PO; em 10:14 Follow up: Response: No adverse reaction; Marked relief of symptoms; Pain is decreased; em RASS: Alert and Calm (0) 09:35 Drug: Flexeril 10 mg Route: PO; em 10:14 Follow up: Response: No adverse reaction; Marked relief of symptoms; Pain is decreased; em RASS: Alert and Calm (0) 10:13 Drug: Lidoderm 5 % (700 mg/patch) 1 patches Route: Topical; Site: affected area; em 10:13 Drug: TORadol 60 mg Route: IM; Site: right deltoid; em Disposition: 10/26 07:19 Co-signature as Attending Physician, Dima Morocho MD I agree with the assessment and kerri plan of care. Disposition: 10/25/20 10:23 Discharged to Home. Impression: Pain in thoracic spine. - Condition is Stable. - Discharge Instructions: Back Pain, Adult. - Prescriptions for Lidoderm 5 % Topical adhesive patch,medicated - apply 1 patch by TRANSDERMAL route once daily As needed; 30 Transdermal Patch. Tylenol- Codeine #3 300-30 mg Oral Tablet - take 2 tablets by ORAL route every 6 hours As needed; 20 tablet. Diclofenac Sodium 75 mg Oral Tablet Sustained Release - take 1 tablet by ORAL route 2 times per day; 30 tablet. Cyclobenzaprine 10 mg Oral Tablet - take 1 tablet by ORAL route every 8 hours As needed; 30 tablet. - Medication Reconciliation Form, Thank You Letter, Antibiotic Education, Prescription Opioid Use form. - Follow up: Emergency Department; When: As needed; Reason: Worsening of condition. Follow up: Private Physician; When: 2 - 3 days; Reason: Recheck today's complaints, Continuance of care, Re-evaluation by your physician. - Problem is new. - Symptoms have improved. Signatures: Dispatcher [employer] Yani Greenberg RN RN sv Anderson, Corey, MD MD cha Munoz, Edgar, RN RN em Smirch, Shelby, RN RN ss Marinas, Patrick, [employer] pm1 Corrections: (The following items were deleted from the chart) 10/25 10:43 10:23 10/25/2020 10:23 Discharged to Home. Impression: Pain in thoracic spine. sv Condition is Stable. Forms are Medication Reconciliation Form, Thank You Letter, Antibiotic Education, Prescription Opioid Use. Follow up: Emergency Department; When: As needed; Reason: Worsening of condition. Follow up: Private Physician; When: 2 - 3 days; Reason: Recheck today's complaints, Continuance of care, Re-evaluation by your physician. Problem is new. Symptoms have improved. pm1
[2020-10-25 10:47] VITALS: BP 131/94; TEMP 98.3; O2SAT 100
== END 2020-10-25 10:43 | disposition home or self-care (01) ==
LOC: ER 09:05
DX: M54.6 Pain in thoracic spine (principal); F17.210 Nicotine dependence, cigarettes, uncomplicated
CPT/HCPCS: 72070; 96372; 99283